=== PATIENT | male | born 1955 | race Caucasian/White ===

== ENCOUNTER 2025-01-20 08:25 | Outpatient (OUT) | payer MEDICARE, OTHER, SELFPAY ==
[2025-01-20 12:37] LABS: Alanine Aminotransferase 38 U/L (16-63); Aspartate Amino Transferase 20 U/L (15-37); Cholesterol 217 mg/dL (<=200); HDL Cholesterol 46 mg/dL (40-60); Triglycerides 162 mg/dL (<=150); VLDL CHOLESTEROL 32.4 mg/dL
[2025-01-21 05:08] LABS: C-Reactive Protein, Cardiac 0.66 mg/L (0.00-3.00)
== END 2025-01-20 08:26 | disposition home or self-care (01) ==
LOC: LAB 08:31
PROVIDERS: PCP Family Medicine; Visit Provider Internal Medicine Cardiovascular Disease
DX: I25.10 Atherosclerotic heart disease of native coronary artery without angina pectoris (principal); E78.5 Hyperlipidemia, unspecified
CPT/HCPCS: 36415; 80061; 84450; 84460; 86140